=== PATIENT | female | born 1955 | race African-American/Black ===

== ENCOUNTER 2022-02-10 08:55 | Outpatient (REF) | payer OTHER, SELFPAY ==
--- NOTE | ~2022-02-10 | MM_ITS ---
EXAMINATION: MM SCREENING DIGITAL BREAST TOMOSYNTHESIS, BILATERAL CLINICAL INFORMATION: Screening. Asymptomatic. History bilateral biopsies. History left ADH. The lifetime risk of breast cancer based on the Tyrer-Cuzick Model is 22%. COMPARISON: Outside mammography: 07/03/2019, 03/04/2019, 09/23/2017, 03/20/2017 ([facility], [place], [place]). TECHNIQUE: Digital breast tomosynthesis is performed in both the craniocaudal and mediolateral oblique views along with computer-aided detection (CAD). Synthesized 2D images are generated from the tomosynthesis. FINDINGS: There are scattered areas of fibroglandular density (ACR BI-RADS breast composition Category b). Parenchymal pattern is similar to outside studies. There is no developing density or interval significant mass or architectural abnormality or abnormal calcifications. Left breast has a new biopsy clip marker posterior central breast. Prior clip marker anterior 1:00 left breast is no longer demonstrated. Right breast has stable nodular asymmetry posterior central breast. The axilla are unremarkable. The skin contours are smooth. No significant changes. MM/MM tomosynthesis screening BI IMPRESSION: No significant changes from outside studies. ASSESSMENT: BI-RADS 2: Benign RECOMMENDATION: 1. Routine annual mammography screening. 2. The lifetime risk of breast cancer based on the Tyrer-Cuzick Model is 22%. Additional annual adjunct screening with breast MRI may be of benefit in women with a risk score of 20% or greater. This patient's information was entered into a reminder system with a target due date for their next mammogram.
== END 2022-02-10 08:56 | disposition home or self-care (01) ==
LOC: HO.MAMMO 08:55
PROVIDERS: Visit Provider Internal Medicine
DX: Z12.31 Encounter for screening mammogram for malignant neoplasm of breast (principal)
CPT/HCPCS: 77063; 77067

== ENCOUNTER 2022-03-03 10:00 | Outpatient (REF) | payer OTHER, SELFPAY ==
[2022-03-03 10:20] LABS: MANUAL DIFF FLAG NO
[2022-03-03 10:37] LABS: Basophils Absolute Auto 0.1 X10*3/uL (0.0-0.2); Basophils Percent Auto 0.5 % (0-2); Eosinophils Absolute Auto 0.2 X10*3/uL (0.0-0.4); Eosinophils Percent Auto 1.5 % (0-4); Hematocrit 46.2 % (37.0-47.0); Hemoglobin 14.7 g/dl (12.0-16.0); Imm Gran Abs Auto 0.03 X10*3/uL (0.00-0.03); Imm Gran Pct Auto 0.3 % (0.0-0.4); Lymphocytes Absolute Auto 4.4 X10*3/uL (1.2-4.9); Lymphocytes Percent Auto 39.2 % (20-40); Mean Corpuscular HGB Conc 31.8 g/dl (31.0-35.0); Mean Corpuscular Hemoglobin 28.5 pg (27.0-33.0); Mean Corpuscular Volume 89.5 fL (80.0-98.0); Mean Platelet Volume 10.8 fL (9.4-12.3); Monocytes Absolute Auto 0.7 X10*3/uL (0.1-1.2); Monocytes Percent Auto 5.8 % (2-11); Neutrophils Absolute Auto 5.9 x10*3/uL (2.0-8.3); Neutrophils Percent Auto 52.7 % (45-73); Platelet Count 284 X10*3/uL (160-400); Red Blood Count 5.16 X10*6/uL (4.20-5.50); Red Cell Distribution Width 13.7 % (11.0-16.0); White Blood Count 11.2 X10*3/uL (4.8-10.8)
[2022-03-03 11:16] LABS: Alanine Aminotransferase 11 U/L (0-31); Albumin Level 4.2 g/dL (3.5-5.0); Alkaline Phosphatase 117 U/L (39-117); Aspartate Amino Transferase 14 U/L (5-31); Blood Urea Nitrogen 16 mg/dL (9-16); Estimated Glomerular Filt Rate > 60; Total Protein 7.2 g/dL (6.5-8.0)
[2022-03-03 11:27] LABS: Bilirubin Direct < 0.2 mg/dL (0.0-0.5); Bilirubin Total 0.3 mg/dL (0.0-1.0)
== END 2022-03-03 10:01 | disposition home or self-care (01) ==
LOC: HO.LAB 10:00
PROVIDERS: PCP Internal Medicine; Visit Provider Nurse Practitioner
DX: Z01.818 Encounter for other preprocedural examination (principal); K63.5 Polyp of colon
CPT/HCPCS: 36415; 80076; 82565; 84520; 85025; 99202

== ENCOUNTER 2022-04-14 10:41 | Outpatient (REF) | payer OTHER, SELFPAY ==
[2022-04-14 14:10] LABS: MANUAL DIFF FLAG NO
[2022-04-14 14:20] LABS: Basophils Absolute Auto 0.1 X10*3/uL (0.0-0.2); Basophils Percent Auto 0.5 % (0-2); Eosinophils Absolute Auto 0.2 X10*3/uL (0.0-0.4); Eosinophils Percent Auto 2.5 % (0-4); Hematocrit 44.2 % (37.0-47.0); Hemoglobin 14.4 g/dl (12.0-16.0); Imm Gran Abs Auto 0.02 X10*3/uL (0.00-0.03); Imm Gran Pct Auto 0.2 % (0.0-0.4); Lymphocytes Absolute Auto 4.5 X10*3/uL (1.2-4.9); Lymphocytes Percent Auto 47.9 % (20-40); Mean Corpuscular HGB Conc 32.6 g/dl (31.0-35.0); Mean Corpuscular Hemoglobin 28.7 pg (27.0-33.0); Mean Corpuscular Volume 88.2 fL (80.0-98.0); Mean Platelet Volume 11.6 fL (9.4-12.3); Monocytes Absolute Auto 0.6 X10*3/uL (0.1-1.2); Monocytes Percent Auto 6.2 % (2-11); Neutrophils Percent Auto 42.7 % (45-73); Platelet Count 287 X10*3/uL (160-400); Red Blood Count 5.01 X10*6/uL (4.20-5.50); Red Cell Distribution Width 13.8 % (11.0-16.0); White Blood Count 9.4 X10*3/uL (4.8-10.8)
[2022-04-14 14:26] LABS: Appearance Urine Clear; Color Urine Yellow; Glucose Urine UA Negative (Negative); Leukocyte Esterase Urine Small (1+) (Negative); Nitrite Urine Negative (Negative); PH 5.5 (5.0-9.0); UMIC TRIGGER UA YES; Urine Blood Negative (Negative); Urine Ketones Negative (Negative); Urine Protein Negative (Neg-Trace)
[2022-04-14 14:39] LABS: Bacteria Urine None Seen (None Seen); Hyaline Casts Urine 0-2 /LPF (0-2); RBC Urine 0-2 /HPF (0-2); WBC Urine 0-5 /HPF (0-5)
[2022-04-14 16:51] LABS: Alanine Aminotransferase 13 U/L (0-31); Alkaline Phosphatase 108 U/L (39-117); Anion Gap 8 (12-20); Aspartate Amino Transferase 15 U/L (5-31); Bilirubin Total 0.2 mg/dL (0.0-1.0); Blood Urea Nitrogen 13 mg/dL (9-16); Calcium 9.1 mg/dL (8.4-10.2); Carbon Dioxide 29 mmol/L (22-29); Chloride 109 mmol/L (96-108); Cholesterol 235 mg/dL; Estimated Glomerular Filt Rate > 60; Glucose Fasting 101 mg/dL (60-99); HDL Cholesterol 37 mg/dL; LDL Cholesterol Calculated 167 mg/dl; Sodium 141 mmol/L (135-145); TSH reflex Free T4 1.37 uIU/mL (0.32-4.0); Total Protein 6.7 g/dL (6.5-8.0); Triglycerides 157 mg/dL
== END 2022-04-14 10:42 | disposition home or self-care (01) ==
LOC: HO.HMGCLDS 10:41
PROVIDERS: PCP Internal Medicine; Visit Provider Internal Medicine
DX: Z00.00 Encounter for general adult medical examination without abnormal findings (principal); E78.5 Hyperlipidemia, unspecified; Z98.890 Other specified postprocedural states
CPT/HCPCS: 36415; 80053; 80061; 81001; 84443; 85025

== ENCOUNTER 2022-04-21 10:09 | Outpatient (REF) | payer OTHER, SELFPAY ==
--- NOTE | ~2022-04-21 | XR_ITS ---
EXAMINATION: XR LUMBOSACRAL SPINE CLINICAL INFORMATION: Low back pain. COMPARISON: None TECHNIQUE: Three views of the lumbosacral spine. FINDINGS: There are 5 nonrib-bearing lumbar vertebrae. There is a mild grade 1 spondylolisthesis L4-L5. No acute fractures identified. There is some bilateral facet arthropathy seen at the L4-L5 and L5-S1 levels. Pedicles appear intact. There is mild scoliosis convex right which may be positional in nature. XR/XR lumbar spine 2-3V IMPRESSION: No acute fracture or spondylolysis of the lumbar spine identified. Mild grade 1 spondylolisthesis L4-L5. Bilateral facet arthropathy L4 through S1.
== END 2022-04-21 10:10 | disposition home or self-care (01) ==
LOC: HO.HMGCX 10:09
PROVIDERS: PCP Internal Medicine; Visit Provider Internal Medicine
DX: M54.50 Low back pain, unspecified (principal)
CPT/HCPCS: 72100

== ENCOUNTER 2022-07-25 10:00 | Outpatient (RCR) | payer OTHER, SELFPAY ==
--- NOTE | 2022-06-16 15:42 | MHC.PT.EP ---
[facility] [place] Office [place] Office [place] Office [address] [phone] F: [phone] F: [phone] F: [phone] F: [phone] Physical Therapy Plan of Care Date of Evaluation: Date of Surgery: NA Diagnosis: LOW BACK PAIN Assessment: Pt IS 66 YO F REFERRED TO PT FROM [facility]. REPORTS PAIN X 4-5 MONTHS, INSIDIOUS ONSET. REPORTS WAS GETTING PAIN THAT WOULD COME AND GO BUT THEN STARTED GETTING WORSE. REPORTS PAIN ACROSS WAIST AND SHOOTS DOWN LEGS. REPORTS IT LIMITS HER FROM HER REGULAR DAILY ROUTINE, UNCOMFORTABLE SLEEPING (USES PILLOWS). RELIEF WITH ALLEVE PRESENTS TO PT WITH LIMITED TRUNK ROM, TIGHT LE MMS, WEAK CORE. SHOULD BENEFIT FROM PT TO ADDRESS THESE ISSUES Frequency and Duration: The patient will be seen 2X/WK X6 WKS Short Term Goals: 1. INCREASED AWARENESS BACK CARE AND POSTURE 2. Pt TO PERF 2-3 TASKS WITH PROPER BODY MECH 3. CENTRALIZE [facility] Goals: 1. I HEP WITH DC EX PLAN 2. DECREASED BACK PAIN AT LEAST 50% WITH ADLS 3. INCREASED HS FLEXIBILITY 5-10 DEGREES B 4. IMPROVED MODIFIED OSWESTRY (/50 SOC) Treatment Plan: Modalities to reduce pain, spasms and effusion. Manual therapy to restore motion and function. Therapeutic exercise to improve strength and flexibility. Neuromuscular re-education for posture and balance. Therapeutic activities to return to functional activities of daily living. Electronically signed by: OSVALDO HOLGUIN PT Please sign and return to therapist. Thank you for your referral.
--- NOTE | 2022-08-14 14:09 | MHC.PT.DC ---
[facility] [place] Office [place] Office [place] Office [address] [phone] F: [phone] F: [phone] F: [phone] F: [phone] Physical Therapy Discharge Report Diagnosis: LOW BACK PAIN Date of Surgery: NA Date of Evaluation: 06/16/22 Date of Discharge: 08/14/22 Treatments to Date: 6 Cancellations to Date: 0 No Shows to Date: 0 Discharge Status: Patient Elected to Stop Discharge Summary: PER LAST NOTE ON 07/25/22 GOOD PERF STRETCHES AND STRENGTHENING EXS WITH CUES . Pt THEN CANCELLED LAST VISIT SCHEDULED FOR 07/25/22 REPORTING SHE DIDNT WANT TO RESCHEDULE AT THAT TIME. NO FURTHER APPTS SCHEDULED Electronically signed by: OSVALDO HOLGUIN PT Please sign and return to therapist. Thank you for your referral.
== END 2022-08-14 14:09 | disposition home or self-care (01) ==
LOC: HO.PT 10:00
PROVIDERS: PCP Internal Medicine; Visit Provider Internal Medicine
DX: M54.50 Low back pain, unspecified (principal)
CPT/HCPCS: 97110; 97140; 97161; 97535

== ENCOUNTER 2022-08-18 08:57 | Outpatient (REF) | payer OTHER, SELFPAY ==
[2022-08-18 11:17] LABS: MANUAL DIFF FLAG NO
[2022-08-18 11:59] LABS: Basophils Absolute Auto 0.1 X10*3/uL (0.0-0.2); Basophils Percent Auto 0.5 % (0-2); Eosinophils Absolute Auto 0.2 X10*3/uL (0.0-0.4); Hematocrit 43.3 % (37.0-47.0); Hemoglobin 14.1 g/dl (12.0-16.0); Imm Gran Abs Auto 0.02 X10*3/uL (0.00-0.03); Imm Gran Pct Auto 0.2 % (0.0-0.4); Lymphocytes Absolute Auto 3.8 X10*3/uL (1.2-4.9); Lymphocytes Percent Auto 40.2 % (20-40); Mean Corpuscular HGB Conc 32.6 g/dl (31.0-35.0); Mean Corpuscular Hemoglobin 29.1 pg (27.0-33.0); Mean Corpuscular Volume 89.3 fL (80.0-98.0); Mean Platelet Volume 11.7 fL (9.4-12.3); Monocytes Absolute Auto 0.6 X10*3/uL (0.1-1.2); Monocytes Percent Auto 5.9 % (2-11); Neutrophils Absolute Auto 4.8 x10*3/uL (2.0-8.3); Neutrophils Percent Auto 51.2 % (45-73); Platelet Count 259 X10*3/uL (160-400); Red Blood Count 4.85 X10*6/uL (4.20-5.50); Red Cell Distribution Width 13.8 % (11.0-16.0); White Blood Count 9.5 X10*3/uL (4.8-10.8)
[2022-08-18 12:18] LABS: Alanine Aminotransferase 10 U/L (0-31); Albumin Level 3.9 g/dL (3.5-5.0); Alkaline Phosphatase 110 U/L (39-117); Anion Gap 11 (12-20); Aspartate Amino Transferase 13 U/L (5-31); Bilirubin Total 0.5 mg/dL (0.0-1.0); Blood Urea Nitrogen 17 mg/dL (9-16); Calcium 9.1 mg/dL (8.4-10.2); Carbon Dioxide 28 mmol/L (22-29); Chloride 111 mmol/L (96-108); Cholesterol 158 mg/dL; Estimated Glomerular Filt Rate > 60; Glucose Fasting 105 mg/dL (60-99); HDL Cholesterol 37 mg/dL; LDL Cholesterol Calculated 102 mg/dl; Potassium 4.8 mmol/L (3.3-5.1); Sodium 145 mmol/L (135-145); Total Protein 6.5 g/dL (6.5-8.0); Triglycerides 95 mg/dL
== END 2022-08-18 08:58 | disposition home or self-care (01) ==
LOC: HO.HMGCLDS 08:57
PROVIDERS: PCP Internal Medicine; Visit Provider Internal Medicine
DX: M54.50 Low back pain, unspecified (principal); E78.5 Hyperlipidemia, unspecified
CPT/HCPCS: 36415; 80053; 80061; 85025

== ENCOUNTER → 2022-08-28 10:41 | Outpatient (BNVA) | payer OTHER, SELFPAY | PROVIDERS: PCP Internal Medicine; Visit Provider Nurse Practitioner Family | DX: M47.817 Spondylosis without myelopathy or radiculopathy, lumbosacral region (principal); M54.16 Radiculopathy, lumbar region; M62.830 Muscle spasm of back | CPT/HCPCS: 99202 ==

== ENCOUNTER 2022-10-06 07:11 | Outpatient (REF) | payer OTHER, SELFPAY ==
--- NOTE | ~2022-10-06 | MR_ITS ---
MR LUMBAR SPINE WITHOUT CONTRAST CLINICAL INFORMATION: Spondylosis. COMPARISON: Lumbar spine radiographs 04/21/2022. TECHNIQUE: MRI of the lumbar spine was obtained using routine sequences without contrast. FINDINGS: There are 5 nonrib-bearing lumbar-type vertebral bodies. There is grade 1 degenerative anterolisthesis of L4 on L5. There is bone marrow edema within the left L4-L5 facets that is most likely degenerative or inflammatory. There is no additional bone marrow edema. There are no acute fractures. Small chronic upper endplate Schmorl's node at L2. Vertebral body heights overall maintained. There is mild disc volume loss at L4-L5. There is disc desiccation at all lumbar levels. Conus terminates at the L1-L2 level. There are no significant extraspinal soft tissue findings. L1-L2: Disc contour is normal. No central canal stenosis and no foraminal stenosis. L2-L3: Disc contour is normal. Moderate bilateral facet arthropathy and ligamentum flavum thickening. No central canal stenosis and no foraminal stenosis. L3-L4: Small annular disc bulge and moderate bilateral facet arthropathy and ligamentum flavum thickening. No central canal stenosis and no foraminal stenosis. L4-L5: Grade 1 degenerative anterolisthesis. Uncovered disc with a superimposed diffuse annular disc bulge and severe bilateral facet arthropathy and ligamentum flavum thickening. Basic concert result in mild central canal stenosis. No significant foraminal stenosis. L5-S1: Diffuse annular disc bulge and severe bilateral facet arthropathy. No central canal stenosis and no foraminal stenosis. MR/MR lumbar spine wo con IMPRESSION: - At L4-L5, there is grade 1 degenerative anterolisthesis in the setting of advanced bilateral facet arthropathy contributing to mild central canal stenosis. There is bone marrow edema within the left L4-L5 facets that is most likely degenerative or inflammatory. - Additional spondylitic changes as discussed above. No severe central canal stenosis and no severe foraminal stenosis within the lumbar spine.
== END 2022-10-06 07:12 | disposition home or self-care (01) ==
LOC: HO.MRI 07:11
PROVIDERS: PCP Internal Medicine; Visit Provider Nurse Practitioner Family
DX: M47.817 Spondylosis without myelopathy or radiculopathy, lumbosacral region (principal); M54.16 Radiculopathy, lumbar region
CPT/HCPCS: 72148

== ENCOUNTER 2022-10-19 10:10 | Day surgery (SDC) | payer OTHER, SELFPAY ==
--- NOTE | 2022-10-18 11:09 | HO.ANESPROP2 ---
Documented by User: Lilly Triplett NP 10/18/22 11:10 HPI - Anesthesia Eval Consult details Narrative: 66yo F for Colonoscopy PMFSH Active Problems Active Problems: All Active Problems (Updated 08/28/22 @ 11:15 by MEET Miller) Muscle spasm of back (Acute) Lumbar back pain with radiculopathy affecting right lower extremity (Acute) Lumbar and sacral spondyloarthritis (Acute) HTN (hypertension) (Acute) Lumbar back pain (Acute) Colon polyps (Acute) Pre-op examination (Acute) Obesity (Acute) Pre-diabetes (Acute) Heart murmur (Acute) Insomnia (Acute) H/O breast surgery (Acute) Hyperlipidemia (Acute) Annual physical exam (Acute) Breast dysplasia (Acute) Past Medical History Medical History (Updated 10/19/22 @ 10:55 by Angy Gonzalez RN) History of cyst of breast Hypertension Family History Family History Mother DM type 2 (diabetes mellitus, type 2) Son Thyroid ca Surgical History Surgical History (Updated 10/19/22 @ 10:54 by Angy Gonzalez RN) Hx of colonoscopy Social History Social History Household Members Other:: , 3 sons, retired Housing: House Alcohol intake: never Patient Tobacco Use Status: Current everyday Tobacco user Tobacco use type: Cigarette Cigarettes Per Day: 6 Smoked in Last 30 Days: Yes e-Cigarette/Vaping Use: Never Used Patient Interested in Nicotine Replacement: No Are you DNR?: No Advance Directives: No Advance Directives Information Provided: Yes Nutrition Risks: No Nutritional Risk service: No Current occupational status: retired Cognitive needs: No Hearing needs: Yes Vision needs: Yes Meds Allergies Allergy/AdvReac Type Severity Reaction Status Date / Time No Known Allergies Allergy Verified 10/19/22 10:35 Exam Exam Date and Time: October 18, 2022 1109 Pertinent Lab Results Pertinent Lab Results: Laboratory Tests 08/18/22 08/18/22 09:01 09:01 WBC 9.5 Hgb 14.1 Hct 43.3 Plt Count 259 Sodium 145 Potassium 4.8 Chloride 111 H Carbon Dioxide 28 BUN 17 H Creatinine 0.89 Assessment and Plan Assessment Anesthesia Assessment: Chart Reviewed Documented by User: Reema Arredondo MD 10/19/22 13:09 PMFSH Past Medical History Medical History (Updated 10/19/22 @ 10:55 by Angy Gonzalez RN) History of cyst of breast Hypertension Family History Family History Mother DM type 2 (diabetes mellitus, type 2) Son Thyroid ca Family history of problems with anesthesia: No Surgical History Surgical History (Updated 10/19/22 @ 10:54 by Angy Gonzalez RN) Hx of colonoscopy History of Problems with Anesthesia: No Social History Social History Household Members Other:: , 3 sons, retired Housing: House Alcohol intake: never Patient Tobacco Use Status: Current everyday Tobacco user Tobacco use type: Cigarette Cigarettes Per Day: 6 Smoked in Last 30 Days: Yes e-Cigarette/Vaping Use: Never Used Patient Interested in Nicotine Replacement: No Are you DNR?: No Advance Directives: No Advance Directives Information Provided: Yes Nutrition Risks: No Nutritional Risk service: No Current occupational status: retired Cognitive needs: No Hearing needs: Yes Vision needs: Yes Meds Allergies Allergy/AdvReac Type Severity Reaction Status Date / Time No Known Allergies Allergy Verified 10/19/22 10:35 Exam Airway Mallampati Class: II TM Dist: >3cm Neck ROM: Full Denture: Lower Partial: Lower Loose/Missing/Broken Teeth: No Heart: rr Lungs: cta Assessment and Plan Assessment Anesthesia Assessment: Anesthesia Plan Discussed, Smoking Cess. Discussed and Chart Reviewed Final Anesthetic Review Family History of Problems with Anesthesia: No History of Problems with Anesthesia: No NPO: Yes ASA Class: II Final Preanesthetic Review: No Changes in Pt Med Stat, Meds/Allgs Chart Reviewed, Consent Obtained/Reviewed and Anes Risks/Benef Reviewed Patient Risk: Low Procedure Risk: Low Anesthetic Plan Anesthetic Plan: MAC: Disposition: Standard PACU
[2022-10-19 10:28] VITALS: BMI 31.6
[2022-10-19] MEDS: Lactated Ringers 1,000 ML 100 ML IVCONT (10:42)
[2022-10-19 10:52] VITALS: BP 144/93; PULSE 81; RESP 18; TEMP 36.6; O2SAT 98
--- NOTE | 2022-10-19 11:48 | MHC.SHP ---
Pre-Procedural Eval Section A Date of Service: 10/19/22 Section B Chief Complaint: Personal hx of polyps Details of Present Illness: PMH: Hypertension Family History Mother DM type 2 (diabetes mellitus, type 2) Son Thyroid ca Relevant Social History: Tobacco Use Present Medications: see Short Stay Collaborative assessment Allergies: Allergies Allergy/AdvReac Type Severity Reaction Status Date / Time No Known Allergies Allergy Verified 10/19/22 10:35 Review of Systems Review of Systems Comment: 10 point ROS negative Exam Exam Comment: Gen appear: No acute distress HEENT: no icterus Chest: No overt resp distress Abd: soft, nontender, nondistended Psych: Stable affect, answering questions appropriately Neuro: A/Ox3 noted to move all extremities spontaneously Ext: no peripheral edema Plan Diagnosis/Plan: Unchanged I have reviewed the history and physical and performed a pertinent physical examination on my patient. No changes have occurred unless specified. Time Spent With Patient Time: Total time managing care of this patient today ____ minutes.
--- NOTE | 2022-10-19 12:45 | P.OP_ITS ---
Operative Note Operative Note Date of Service: 10/19/22 Narrative: Procedure: Colonoscopy Indication: Personal history of polyps Endoscopist: Marylin Martinez MD Anesthesia Provider: Dr Ketty Arredondo Anesthesia type: MAC Instrument: Olympus [id number]-[id number] Consent: Indication, risks vs benefits, and alternatives were discussed with the patient who gave written informed consent to proceed. EKG, pulse, pulse oximetry and blood pressure were monitored throughout the procedure. Please see anesthesia flowsheet. Procedure: The patient was brought to the procedure room and placed in the left lateral decubitus position. IV medications were administered by the anesthesia provider in attendance. A digital rectal exam was performed which was normal. Distal cap was affixed to the tip of the scope and the colonoscope was then inserted through the anus and advanced through the colon to the cecum at 75 cm,and terminal ileum. Mucosa was carefully examined under high definition white light as the instrument was slowly withdrawn in a retrograde panoramic fashion. Retroflexion was performed in rectum. The procedure was not difficult. There were no immediate obvious complications. The quality of the prep was BBPS: 3+3+3 = excellent Withdrawal time 16 minutes. Limitations: No limitation. Findings: Mucosa: Normal to cecum and terminal ileum. Protruding lesions: * 1 sessile polyp of size 3 mm in cecum. Cold snare polypectomy was performed. The polyp was completely removed and retrieved. * 1 sessile polyp of size 2 mm in transverse colon. Cold forceps polypectomy was performed. The polyp was completely removed and retrieved. * 1 sessile polyp of size 5 mm in transverse colon. Cold snare polypectomy was performed. The polyp was completely removed and retrieved. * 1 sessile polyp of size 5 mm in sigmoid colon. Cold snare polypectomy was performed. The polyp was completely removed and retrieved. * Medium internal hemorrhoids without stigmata of recent bleeding. Excavated lesions: * Divreticulosis of whole colon, with L > R. Impression: 1. Normal colon and terminal ileum mucosa 2. Total of 4 polyps removed from cecum, transverse and sigmoid colon. 3. Internal hemorrhoids 4. Diverticulosis Recommendations: - Follow path results. - Repeat colonoscopy in 3 years if at least 3 polyps are adenomas otherwise 7 years.
[2022-10-19 13:19] VITALS: BP 115/65; PULSE 80; RESP 16; TEMP 36.1; O2SAT 97
[2022-10-19 13:34] VITALS: BP 124/78; PULSE 74; RESP 16; TEMP 36.2; O2SAT 97
== END 2022-10-19 13:59 | disposition home or self-care (01) ==
PROVIDERS: PCP Internal Medicine; Visit Provider Internal Medicine
PROC: 0DJD8ZZ Inspection of Lower Intestinal Tract, Via Natural or Artificial Opening Endoscopic (ICD-10-PCS; CPT 45378; principal; 2022-10-19 12:00)
DX: Z12.11 Encounter for screening for malignant neoplasm of colon (principal); Z86.010 Personal history of colon polyps; D12.0 Benign neoplasm of cecum; D12.3 Benign neoplasm of transverse colon; D12.5 Benign neoplasm of sigmoid colon; K57.30 Diverticulosis of large intestine without perforation or abscess without bleeding; K64.8 Other hemorrhoids; I10 Essential (primary) hypertension; Z79.899 Other long term (current) drug therapy; F17.210 Nicotine dependence, cigarettes, uncomplicated
CPT/HCPCS: 45385; 45380; 88305

== ENCOUNTER → 2022-10-31 09:11 | Outpatient (BNVA) | payer OTHER, SELFPAY | PROVIDERS: PCP Internal Medicine; Visit Provider Nurse Practitioner | DX: D12.0 Benign neoplasm of cecum (principal); D12.3 Benign neoplasm of transverse colon; D12.5 Benign neoplasm of sigmoid colon; Z98.890 Other specified postprocedural states | CPT/HCPCS: 99212 ==

== ENCOUNTER → 2022-11-03 09:09 | Outpatient (BNVA) | payer OTHER, SELFPAY | PROVIDERS: PCP Internal Medicine; Visit Provider Nurse Practitioner Family | DX: M51.16 Intervertebral disc disorders with radiculopathy, lumbar region (principal); M43.16 Spondylolisthesis, lumbar region; M47.817 Spondylosis without myelopathy or radiculopathy, lumbosacral region; M48.061 Spinal stenosis, lumbar region without neurogenic claudication; M62.830 Muscle spasm of back | CPT/HCPCS: 99212 ==

== ENCOUNTER 2022-12-25 10:05 | Outpatient (AMB) | payer OTHER, SELFPAY ==
[2022-12-25 10:06] VITALS: BP 128/80; PULSE 77; O2SAT 98; BMI 30.6
--- NOTE | 2022-12-25 10:06 | A.OFFPC_ITS ---
Vital Signs 12/25/22 10:06 Height 5 ft 5 in Weight 184 lb BMI 30.6 BP 128/80 Blood Pressure Location Lt brachial Position Sitting Pulse 77 Pulse Source Pulse Oximeter Pulse Oximetry (%) 98 Oxygen Delivery Method Room Air Intake Visit Reasons: discuss medical issues Intake Note: Pt is here today for a follow up visit. Pt states that she is still getting pain on the ride side of her lower back that goes down her leg. Allergies No Known Allergies Allergy (Verified 12/25/22 10:10) Medication List - Last Reconciled 12/25/22 by Kasey Cervantes MD enalapril maleate 10 mg PO DAILY pravastatin 40 mg PO BEDTIME tizanidine 4 mg PO BID PRN 30 days Tobacco use date assessed: 12/25/22 Dental Screening Dental Screen Date: 12/25/22 Did you have a dental visit in the last 12 months?: No Did you have a dental problem in the last 6 months where you did not have access to dental care?: Yes Was dental information given to patient?: Yes HPI discuss medical issues HPI Details Patient presents for the follow-up. Hypertension hyperlipidemia controlled current medications. Patient follows up with pain management for chronic lower back pain and had an MRI which showed typical degenerated changes. Patient completed physical therapy and has been trying to do exercises at home. She was referred to neurosurgeon for evaluation. Patient denies weakness or numbness in extremities, change in bowel or bladder function. [facility] Medical History History of cyst of breast Hypertension Surgical History Hx of colonoscopy Family History Mother DM type 2 (diabetes mellitus, type 2) Son Thyroid ca Social History Household Members Other:: , 3 sons, retired Housing: House Alcohol intake: never Patient Tobacco Use Status: Current everyday Tobacco user Tobacco use type: Cigarette Cigarettes Per Day: 6 e-Cigarette/Vaping Use: Never Used service: No Current occupational status: retired Cognitive needs: No Hearing needs: Yes Vision needs: Yes Questionnaire Thrive Questionnaire Date Thrive assessed: 07/21/22 AUDIT C Alcohol Use Questionnaire (AUDIT-C) 1. How often do you have a drink containing alcohol?: Never 3. How often do you have six or more drinks on one occasion?: Never Total Score: 0 JACOBO-7 AMB Questionnaire JACOBO-7 Date JACOBO - 7 assessed: 07/21/22 Source: Developed by Drs. Mauro Henriquez, Manuela Alonso, Zi Jones and colleagues, with an educational niki from [employer]. Review of Systems Const All systems reviewed & are unremarkable except as noted in HPI and below Reports no additional complaints Eyes Reports no additional complaints ENT Reports no additional complaints Card Reports no additional complaints Resp Reports no additional complaints GI Reports no additional complaints Physical exam (Primary Care) Vital Signs: Last Vital Signs Pulse 77 12/25/22 10:06 BP 128/80 12/25/22 10:06 Pulse Ox 98 12/25/22 10:06 Oxygen Delivery Method Room Air 12/25/22 10:06 BMI result Body Mass Index 30.6 Tobacco/Smoking Status: Tobacco use Status Tobacco use date assessed 12/25/22 12/25/22 10:12 Patient Tobacco Use Status Current everyday Tobacco 12/25/22 10:12 Tobacco use type Cigarette 12/25/22 10:12 e-Cigarette/Vaping Use Never Used 12/25/22 10:12 Thrive Assessment: Date of Thrive Assessment Date Thrive assessed 07/21/22 12/25/22 10:12 Const General: no acute distress HENMT Head: Yes normal to inspection Mouth: Normal oral and palatal mucosa present Eyes General: appearance normal, both eyes and all related structures Neck Neck: Yes supple Resp Effort & Inspection: normal respiratory effort Auscultation: clear to auscultation bilaterally Cardio Rhythm: regular rhythm Heart sounds: S1 normal heart sound present and S2 normal heart sound present GI Palpation (GI): Soft to palpation Percussion: Yes normal to percussion Auscultation: normal bowel sounds Back/Spine/Pelvis Other: Decreased range of motion lumbar spine, paraspinal tenderness in the lower lumbar region, straight leg rising 90 degrees bilaterally, Assessment and Plan Assessment & Plan (1) Discogenic low back pain: Code(s): M51.36 - Other intervertebral disc degeneration, lumbar region Plan: Patient was advised to continue regular home lower back exercises, increase physical activity and lose weight (2) Hyperlipidemia: Code(s): E78.5 - Hyperlipidemia, unspecified Plan: Continue statin (3) HTN (hypertension): Code(s): I10 - Essential (primary) hypertension Plan: Continue enalapril. she will return in 6 months for a physical with fasting labs before Coding Level of Care Code Est Pt Level 4 (27490) Diagnoses Discogenic low back pain M51.36 Hyperlipidemia E78.5 HTN (hypertension) I10
== END 2022-12-25 10:52 | disposition home or self-care (01) ==
PROVIDERS: PCP Internal Medicine; Visit Provider Internal Medicine
DX: M51.36 Other intervertebral disc degeneration, lumbar region (principal); E78.5 Hyperlipidemia, unspecified; I10 Essential (primary) hypertension
CPT/HCPCS: 99214

== ENCOUNTER 2023-01-19 10:16 | Outpatient (AMB) | payer OTHER, SELFPAY ==
--- NOTE | 2023-01-19 10:21 | A.SPINEOV_ITS ---
Intake Intake Visit Reasons: discogenic low back pain Intake Note: Ms. Akers is here today c/o low back pain. [place] [facility] [place] [employer] Required: No Allergies No Known Allergies Allergy (Verified 12/25/22 10:10) Assessment & Plan Assessment & Plan (1) Lumbar and sacral spondyloarthritis: Code(s): M47.817 - Spondylosis without myelopathy or radiculopathy, lumbosacral region Plan Dear colleague Thank you for referring Alanna Akers to the office today with a chief complaint of low back pain and right leg pain. HPI: This 67-year-old female reports back pain that radiates down her right leg to her ankle with walking. Standing improves the pain. Gone up hills or stairs also produces the pain. The lower back pain is therefore an hour but can also be there for days. Laying down increases the back pain. She denies weakness or numbness. She was evaluated by our pain management team who referred to me for further evaluation before day will employ their treatment modalities. Physical Exam: Pleasant female.Gifford sign is positive. Straight leg raise is negative. Otherwise no neurologic deficits. Radiological Studies: [place] [facility] [place] excellent quality of lumbar discs without nerve compression or stenosis. There is a mild anterolisthesis L4-5 and L4-5 facet arthropathy with the right side is more affected than the left side.. Standing x-ray show no increase of the spondylolisthesis. Impression/Plan: This patient is suffering from back pain that could be related to the facet arthropathy. I recommended facet blocks and possible facet denervations. However, the leg pain is more consistent with vascular claudication. She is a smoker and therefore I referred her for a vascular study to rule out arterial stenosis. Thank you for allowing me to participate in your patients care. total time spent was 50 minutes in counseling ,coordination of plan, personal review of imaging, surgical decision making and subsequent plan William Meneses MD, PhD Spine Fellowship Trained Neurosurgeon Director, [facility] Orders: Orders US arterial duplex LE RT Today I73.9 - Peripheral vascular disease, unspecified Coding Level of Care Code New Pt Level 4 (11800) Diagnoses 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
== END 2023-01-19 10:53 | disposition home or self-care (01) ==
PROVIDERS: PCP Internal Medicine; Referring Provider Nurse Practitioner Family; Visit Provider Neurological Surgery
DX: M47.817 Spondylosis without myelopathy or radiculopathy, lumbosacral region (principal)
CPT/HCPCS: 99204; 99214

== ENCOUNTER → 2023-01-19 10:16 | Outpatient (BNVA) | payer OTHER, SELFPAY | PROVIDERS: PCP Internal Medicine; Visit Provider Neurological Surgery ==

== ENCOUNTER 2023-01-22 08:43 | Outpatient (AMB) | payer OTHER, SELFPAY ==
[2023-01-22 08:56] VITALS: BP 126/74; PULSE 86; O2SAT 96; BMI 30.3
--- NOTE | 2023-01-22 08:56 | A.OFFPC_ITS ---
Vital Signs 01/22/23 08:56 Height 5 ft 5 in Weight 182 lb BMI 30.3 BP 126/74 Blood Pressure Location Rt brachial Position Sitting Pulse 86 Pulse Source Pulse Oximeter Pulse Oximetry (%) 96 Oxygen Delivery Method Room Air Intake Visit Reasons: Annual PE Intake Note: Pt is here today for PE. Allergies No Known Allergies Allergy (Verified 01/22/23 08:56) Medication List - Last Reconciled 01/22/23 by Kasey Cervantes MD enalapril maleate 10 mg PO DAILY pravastatin 40 mg PO BEDTIME tizanidine 4 mg PO BID PRN 30 days Tobacco use date assessed: 01/22/23 HPI Annual PE HPI Details Pt presents for PE. SHE COMPLAINS OF SORE THROAT CONGESTION PRODUCTIVE COUGH WHEEZING AND LOW-GRADE FEVER for 4 days. Patient smokes a half a pack a day and is trying to quit. [facility] Medical History History of cyst of breast Hypertension Surgical History Hx of colonoscopy Family History Mother DM type 2 (diabetes mellitus, type 2) Son Thyroid ca Social History Household Members Other:: , 3 sons, retired Housing: House Alcohol intake: never Patient Tobacco Use Status: Current everyday Tobacco user Tobacco use type: Cigarette Cigarettes Per Day: 6 e-Cigarette/Vaping Use: Never Used service: No Current occupational status: retired Cognitive needs: No Hearing needs: Yes Vision needs: Yes Questionnaire Thrive Questionnaire Date Thrive assessed: 07/21/22 JACOBO-7 AMB Questionnaire JACOBO-7 Date JACOBO - 7 assessed: 07/21/22 Source: Developed by Drs. Mauro Henriquez, Manuela Alonso, Zi Jones and colleagues, with an educational niki from [employer]. Review of Systems Const All systems reviewed & are unremarkable except as noted in HPI and below Reports no additional complaints Eyes Reports no additional complaints ENT Reports no additional complaints Card Reports no additional complaints GI Reports no additional complaints Reports no additional complaints Physical exam (Primary Care) Vital Signs: Last Vital Signs Pulse 86 01/22/23 08:56 BP 126/74 01/22/23 08:56 Pulse Ox 96 01/22/23 08:56 Oxygen Delivery Method Room Air 01/22/23 08:56 BMI result Body Mass Index 30.3 Tobacco/Smoking Status: Tobacco use Status Tobacco use date assessed 01/22/23 01/22/23 09:01 Patient Tobacco Use Status Current everyday Tobacco 01/22/23 08:57 Tobacco use type Cigarette 01/22/23 08:57 e-Cigarette/Vaping Use Never Used 01/22/23 08:57 Thrive Assessment: Date of Thrive Assessment Date Thrive assessed 07/21/22 01/22/23 08:57 Const General: no acute distress HENMT Head: Yes normal to inspection Ears: TM's normal bilaterally General nose exam: Abnormal mucous membranes and turbinates present erythematous Face and sinus: Yes sinus tenderness Throat: Yes posterior oropharynx abnormal (erythema) and Yes postnasal drainage Eyes General: appearance normal, both eyes and all related structures Neck Neck: Yes no lymphadenopathy and Yes supple Resp Effort & Inspection: normal respiratory effort Auscultation: wheezes and diminished lung sounds Cardio Rhythm: regular rhythm Heart sounds: S1 normal heart sound present and S2 normal heart sound present GI Inspection: Yes normal to inspection Palpation (GI): Soft to palpation Percussion: Yes normal to percussion Auscultation: normal bowel sounds Assessment and Plan Assessment & Plan (1) Bronchitis: Code(s): J40 - Bronchitis, not specified as acute or chronic Plan: Z-Remigio prednisone taper and albuterol inhaler are prescribed and supportive care discussed with the patient. Tobacco quitting was recommended (2) Annual physical exam: Code(s): Z00.00 - Encounter for general adult medical examination without abnormal findings Plan: Well-balanced diet and regular physical activity weight loss discussed with the patient, she is up-to-date with mammogram and colonoscopy (3) Hyperlipidemia: Code(s): E78.5 - Hyperlipidemia, unspecified Plan: Continue statin (4) Lumbar and sacral spondyloarthritis: Comment: Follow-up with pain management Code(s): M47.817 - Spondylosis without myelopathy or radiculopathy, lumbosacral region Orders: Orders SARS-CoV2/FLU/RSV Today R09.89 - Other specified symptoms and signs involving the circulatory and respiratory systems Comprehensive [place]. Panel Fast Today E78.5 - Hyperlipidemia, unspecified, M47.817 - Spondylosis without myelopathy or radiculopathy, lumbosacral region, Z00.00 - Encounter for general adult medical examination without abnormal findings Complete Blood Count Auto Diff Today E78.5 - Hyperlipidemia, unspecified, M47. 817 - Spondylosis without myelopathy or radiculopathy, lumbosacral region, Z00.00 - Encounter for general adult medical examination without abnormal findings Lipid Panel Today E78.5 - Hyperlipidemia, unspecified, M47.817 - Spondylosis without myelopathy or radiculopathy, lumbosacral region, Z00.00 - Encounter for general adult medical examination without abnormal findings TSH reflex Free T4 Today E78.5 - Hyperlipidemia, unspecified, M47.817 - Spondylosis without myelopathy or radiculopathy, lumbosacral region, Z00.00 - Encounter for general adult medical examination without abnormal findings Medications: New albuterol sulfate 90 mcg/actuation 2 puffs inhalation QID PRN 8.5 grams 0RF shortness of breath or wheezing azithromycin start on day 2 of therapy 250 mg PO DAILY 6 tabs 0RF 6 days prednisone 4 tablets p.o. q.d. for 3 days then 3 tablets p.o. q.d. for 3 days then 2 tablets p.o. q.d. for 3 days and 1 tablet p.o. q.d. for 3 days 10 mg PO DIRECTED 30 tabs 0RF Coding Level of Care Code Est Pt Prev Care >65y(11403) Diagnoses Bronchitis J40 Annual physical exam Z00.00 Hyperlipidemia E78.5 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
== END 2023-01-22 09:51 | disposition home or self-care (01) ==
PROVIDERS: Visit Provider Internal Medicine
DX: J40 Bronchitis, not specified as acute or chronic (principal); Z00.00 Encounter for general adult medical examination without abnormal findings; E78.5 Hyperlipidemia, unspecified; M47.817 Spondylosis without myelopathy or radiculopathy, lumbosacral region
CPT/HCPCS: 99397

== ENCOUNTER 2023-01-22 09:32 | Outpatient (REF) | payer OTHER, SELFPAY ==
[2023-01-22 11:57] LABS: Influenza A PCR NEGATIVE (Negative); Influenza B PCR NEGATIVE (Negative); Resp Syncy Virus RNA Qual PCR NEGATIVE (Negative); SARS COV2 PCR INHOUSE NEGATIVE (Negative)
== END 2023-01-22 09:33 | disposition home or self-care (01) ==
LOC: HO.LAB 09:32
PROVIDERS: Visit Provider Internal Medicine
DX: Z20.822 Contact with and (suspected) exposure to COVID-19 (principal); R09.89 Other specified symptoms and signs involving the circulatory and respiratory systems
CPT/HCPCS: 0241U

== ENCOUNTER → 2023-02-16 09:00 | Outpatient (BNV) | payer OTHER, SELFPAY | PROVIDERS: PCP Internal Medicine; Visit Provider Radiology Diagnostic Radiology | DX: Z12.31 Encounter for screening mammogram for malignant neoplasm of breast (principal) | CPT/HCPCS: 77063; 77067 ==

== ENCOUNTER 2023-02-16 09:04 | Outpatient (REF) | payer OTHER, SELFPAY ==
--- NOTE | ~2023-02-16 | MM_ITS ---
EXAMINATION: MM SCREENING DIGITAL BREAST TOMOSYNTHESIS, BILATERAL CLINICAL INFORMATION: Screening. Asymptomatic. COMPARISON: Mammography: This study is compared with prior exams dating back to 2018. TECHNIQUE: Digital breast tomosynthesis is performed in both the craniocaudal and mediolateral oblique views along with computer-aided detection (CAD). Synthesized 2D images are generated from the tomosynthesis. FINDINGS: There are scattered areas of fibroglandular density (ACR BI-RADS breast composition Category b). There are no significant masses, abnormal calcifications, or other abnormalities. There is a tissue marker in the left breast from prior benign percutaneous biopsy. MM/MM tomosynthesis screening BI IMPRESSION: No mammographic evidence of malignancy. ASSESSMENT: BI-RADS BI-RADS 2 - Benign Findings RECOMMENDATION: Routine annual mammography screening. 1 year F/U This examination should not preclude the clinical evaluation of a suspicious palpable abnormality. This patient's information was entered into a reminder system with a target due date for their next mammogram.
== END 2023-02-16 09:05 | disposition home or self-care (01) ==
LOC: HO.MAMMO 09:04
PROVIDERS: PCP Internal Medicine; Visit Provider Internal Medicine
DX: Z12.31 Encounter for screening mammogram for malignant neoplasm of breast (principal)
CPT/HCPCS: 77063; 77067

== ENCOUNTER 2023-03-26 13:52 | Outpatient (REF) | payer OTHER, SELFPAY ==
--- NOTE | ~2023-03-26 | US_ITS ---
EXAMINATION: Noninvasive assessment of the left lower extremities with ARTERIAL DUPLEX CLINICAL INFORMATION: Peripheral vascular disease with left lower extremity pain TECHNIQUE: Duplex Doppler techniques with waveform analysis and measurement of velocities in the left common femoral, profunda femoris, superficial femoral, popliteal and tibial arteries were performed. COMPARISON: None FINDINGS: DIRECT DUPLEX DOPPLER FINDINGS: LEFT LEG: Common femoral artery: 114 cm/s, phasicity: Triphasic Profunda femoris artery: 61.7 cm/s, phasicity: Triphasic Superficial femoral artery (proximal): 100 cm/s, phasicity: Triphasic Superficial femoral artery (mid): 66.0 cm/s, phasicity: Triphasic Superficial femoral artery (distal): 79.2 cm/s, phasicity: Triphasic Popliteal artery: 67.2 cm/s, phasicity: Triphasic Posterior tibial artery: 105 cm/s, phasicity: Triphasic Peroneal artery: 45.2 cm/s, phasicity: Biphasic Anterior tibial artery: 49.9 cm/s, phasicity: Biphasic Dorsalis pedis artery: 65.1 cm/s, phasicity: Biphasic US/US arterial duplex LE LT IMPRESSION: Normal duplex arterial ultrasound of the left lower extremity
== END 2023-03-26 13:53 | disposition home or self-care (01) ==
LOC: HO.US 13:52
PROVIDERS: PCP Internal Medicine; Visit Provider Neurological Surgery
DX: I73.9 Peripheral vascular disease, unspecified (principal)
CPT/HCPCS: 93926

== ENCOUNTER 2023-06-27 16:08 | Emergency (ER) | payer OTHER, SELFPAY ==
[2023-06-27 16:24] VITALS: BP 154/81; PULSE 80; RESP 16; TEMP 36.6; O2SAT 98; BMI 31.3
--- NOTE | 2023-06-27 16:24 | ED_ITS ---
HPI - Eye Problem General Chief complaint: Eye Problems Stated complaint: eye problems since yesterday Time Seen by Provider: 06/27/23 17:24 Source: patient Mode of arrival: ambulatory Limitations: no limitations History of Present Illness HPI Narrative: Patient is a 67-year-old female presenting to the emergency department with complaint of bilateral eye itching, redness, and purulent discharge since yesterday. States symptoms began yesterday in left eye and have progressed to right. Reports some blurred vision due to discharge, but states vision clears when discharge is wiped away. Also reports bilateral foreign body sensation. Patient reports that she wears glasses daily but denies any contact lens use. Denies any nasal congestion, sinus pain or pressure, fevers. chief complaint: eye redness Onset (ago): day(s) Onset description: gradual Duration: progressively worsening Location: both eyes Eye Symptoms: redness, foreign body sensation, itching and discharge Associated symptoms: none Treatments Prior to Arrival: none Related Data Previous Rx's Medication Instructions Recorded tizanidine 4 mg tablet 4 mg PO BID PRN muscle spasticity 08/31/22 30 days #60 tabs albuterol sulfate 90 mcg/actuation 2 puff inhalation QID PRN 01/22/23 aerosol inhaler shortness of breath or wheezing #8.5 grams azithromycin 250 mg tablet 250 mg PO DAILY 6 days #6 tabs 01/22/23 prednisone 10 mg tablet 10 mg PO DIRECTED #30 tabs 01/22/23 enalapril maleate 10 mg tablet 10 mg PO DAILY #90 tabs 04/21/23 pravastatin 40 mg tablet 40 mg PO BEDTIME #90 tabs 04/21/23 polymyxin B sulfate 10,000 1 drp ophthalmic (eye) Q3H 7 days 06/27/23 unit-trimethoprim 1 mg/mL eye drops #10 mL Allergies Allergy/AdvReac Type Severity Reaction Status Date / Time No Known Allergies Allergy Verified 06/27/23 16:24 Review of Systems Review of Systems: As per HPI Yes all other systems are reviewed and are negative Constitutional: Constitutional: Reports as per HPI PMFSH Past Medical History Medical History History of cyst of breast Hypertension Surgical History Hx of colonoscopy Family History Family History Mother DM type 2 (diabetes mellitus, type 2) Son Thyroid ca Social History Social History Household Members Other:: , 3 sons, retired Housing: House Alcohol intake: never Patient Tobacco Use Status: Current everyday Tobacco user Tobacco use type: Cigarette Cigarettes Per Day: 6 e-Cigarette/Vaping Use: Never Used Advance Directives: No Advance Directives Information Provided: No service: No Current occupational status: retired Cognitive needs: No Hearing needs: Yes Vision needs: Yes Physical Exam Vital Signs: Vital Signs: Last Vital Signs Temp 97.9 F 06/27/23 16:24 Pulse 80 06/27/23 16:24 Resp 16 06/27/23 16:24 BP 154/81 H 06/27/23 16:24 Pulse Ox 98 06/27/23 16:24 O2 Del Method Room Air 06/27/23 16:24 BMI result Body Mass Index 31.3 Vital signs have been reviewed and appear to be correct. Blood pressure elevated. Heart rate normal. Respiratory rate normal. Temperature normal. Oxygen saturation normal. Const: General: cooperative, healthy appearing and no acute distress Orientation/consciousness: oriented to person, oriented to place, oriented to time and patient oriented x3 Limitations: no limitations HEENT: Head: Yes normocephalic and Yes atraumatic Ears: external ears normal General nose exam: Normal external nose present Face and sinus: Yes face symmetric Mouth: oropharynx normal and moist mucous membranes Throat: Yes uvula midline Eyes: Other: purulent drainage noted bilaterally General: appearance normal, both eyes and all related structures Visual Monsivais: normal visual monsivais by confrontation Alignment and Position: alignment normal and position normal Periorbital: periorbital findings normal Eyelids: Yes eyelids normal Conjunctivae: conjunctival abnormal bilateral conjunctival injection diffuse Sclerae: sclerae normal Corneas: corneas normal and fluorescein used (no evidence of abrasion on Boo lamp exam) Pupils: Equal, round and reactive pupils present EOM: EOMs intact bilaterally Neck: Neck: Yes normal visual inspection and Yes supple Resp: Effort & Inspection: normal respiratory effort and able to speak in complete sentences Auscultation: clear to auscultation bilaterally Cardio: Rate: regular rate Rhythm: regular rhythm Heart sounds: S1 normal heart sound present and S2 normal heart sound present GI: Palpation (GI): Soft to palpation and nontender Auscultation: normoacti ve bowel sounds : General: Yes no CVA tenderness Back/Spine/Pelvis: Back: no CVA tenderness Skin: General skin exam: elasticity normal and turgor normal Neuro: General: oriented to person, oriented to place, oriented to time, patient oriented x3, moves all extremities, no focal motor deficits and CN's II- XI intact bilaterally Cranial nerves: Yes Equal, round and reactive pupils present Cognition (Neuro): normal cognition Extrem: General: Yes full ROM, Yes no pedal edema and Yes no calf tenderness Psych: Mental Status: mental status grossly normal Affect: normal affect Thought process: Normal thought process present Course Course Course Narrative: RME: 67 year-old F w/ PMHx HTN presenting to the ED c/o bilateral eye leaking, swelling and FB sensation described as sandpaper feeling w/assoc blurry vision and itching x yesterday. started in L eye and spread to R. +b/l conjunctival injection/tearing. wears glasses, no contacts VA, Tetricaine/fluorescein ordered Full HPI, ROS and PE to be performed by primary ED provider. Medical Decision Making Medical Decision Making [facility] Narrative: Patient is a 67-year-old female presenting to the emergency department with co mplaint of bilateral eye itching, redness, and purulent discharge since yesterday. On exam patient is awake, A+Ox3, VS WNL, afebrile, normal neurological exam without focal deficits, physical exam findings as above. Given reported symptoms and physical exam findings, initial differential includes conjunctivitis, corneal abrasion. Do not suspect preseptal cellulitis. No evidence of corneal abrasions on Boo lamp exam with fluorescein. Will treat patient with polymyxin B/ trimethoprim drops. Educated patient on importance of hand hygiene. Return precautions discussed with patient at beds michelle. Patient verbalized understanding of and agreement with plan. Differential Diagnosis Differential Diagnoses: The differential diagnosis associated with the presentation includes As per MDM. External Record Review External record reviewed: Inpatient record, Office record and Outpatient record Prescription Management I considered prescription management with: Antibiotic Discharge Plan Discharge Clinical Impression: Acute conjunctivitis, bilateral Patient Disposition: Home, Self-Care Instructions: Conjunctivitis (ED) Additional Instructions: You were evaluated in the emergency department today for eye redness, itching, and discharge. You are being treated for conjunctivitis with antibiotic eyedrops. Please complete the full course as prescribed. Be sure to wash hands thoroughly before and after touching your eyes. You should follow up with your primary care provider or external relations director this week. Return to the emergency department if you develop changes in vision, increasing pain, fever 100.4F or greater, increased swelling around your eyes, pain with eye movements or any other concerning symptoms. Prescriptions: New polymyxin B sulf-trimethoprim 10,000 unit- 1 mg/mL drops 1 drp ophthalmic (eye) Q3H 7 Days Qty: 10 0RF Rx Instructions: to both eyes while awake; do not exceed 6 doses in 24 hours No Action tizanidine 4 mg tablet 4 mg PO BID PRN (Reason: muscle spasticity) 30 Days Qty: 60 0RF pravastatin 40 mg tablet 40 mg PO BEDTIME Qty: 90 3RF enalapril maleate 10 mg tablet 10 mg PO DAILY Qty: 90 3RF azithromycin 250 mg tablet 250 mg PO DAILY 6 Days Qty: 6 0RF Rx Instructions: start on day 2 of therapy prednisone 10 mg tablet 10 mg PO DIRECTED Qty: 30 0RF Rx Instructions: 4 tablets p.o. q.d. for 3 days then 3 tablets p.o. q.d. for 3 days then 2 tablets p.o. q.d. for 3 days and 1 tablet p.o. q.d. for 3 days albuterol sulfate 90 mcg/actuation HFA aerosol inhaler 2 puff inhalation QID PRN (Reason: shortness of breath or wheezing) Qty: 8.5 0RF
[2023-06-27] MEDS: Tetracaine HCl/PF 0.5% Oph Sol 4 ML DROPS 1 DROP EYE-BOTH (17:40)
[2023-06-27] MEDS: Fluorescein Sodium STRIP 1 STRIP EYE-BOTH (17:40)
== END 2023-06-27 18:30 | disposition home or self-care (01) ==
PROVIDERS: Emergency Provider Emergency Medicine Emergency Medical Services; PCP Internal Medicine
DX: H10.33 Unspecified acute conjunctivitis, bilateral (principal); I10 Essential (primary) hypertension
CPT/HCPCS: 99282; 99283

== ENCOUNTER 2024-01-25 09:34 | Outpatient (AMB) | payer OTHER, SELFPAY ==
[2024-01-25 09:36] VITALS: BP 130/78; PULSE 71; O2SAT 97; BMI 31.4
--- NOTE | 2024-01-25 09:36 | A.OFFPC_ITS ---
Vital Signs 01/25/24 09:36 Height 5 ft 5 in Weight 189 lb BMI 31.4 BP 130/78 Blood Pressure Location Rt brachial Position Sitting Pulse 71 Pulse Source Pulse Oximeter Pulse Oximetry (%) 97 Oxygen Delivery Method Room Air Intake Visit Reasons: PE Intake Note: Pt is here today for PE. Allergies No Known Allergies Allergy (Verified 01/25/24 09:38) Medication List - Last Reconciled 01/25/24 by Kasey Cervantes MD albuterol sulfate 90 mcg/actuation 2 puffs inhalation QID PRN enalapril maleate 10 mg PO DAILY polymyxin B sulf-trimethoprim 10,000 unit- 1 mg/mL 1 drp ophthalmic (eye) Q3H 7 days pravastatin 40 mg PO BEDTIME Tobacco use date assessed: 01/25/24 Fall risk assessment: No Falls in past year Last assessed Fall Risk: 01/25/24 Dental Screening Dental Screen Date: 01/25/24 Did you have a dental visit in the last 12 months?: Yes Did you have a dental problem in the last 6 months where you did not have access to dental care?: No Was dental information given to patient?: Patient has dentist HPI PE HPI Details Patient presents for physical. She complains of chronic lower back pain and has been working with pain management and physical therapy. [facility] Medical History (Updated 01/25/24 @ 10:04 by Kasey Cervantes MD) History of cyst of breast Hypertension Surgical History Hx of colonoscopy Family History Mother DM type 2 (diabetes mellitus, type 2) Son Thyroid ca Social History Household Members Other:: , 3 sons, retired Housing: House Alcohol intake: never Patient Tobacco Use Status: Current everyday Tobacco user Tobacco use type: Cigarette Cigarettes Per Day: 6 e-Cigarette/Vaping Use: Never Used service: No Current occupational status: retired Cognitive needs: No Hearing needs: Yes Vision needs: Yes Questionnaire PHQ-9 Over the last 2 weeks, how often have you been bothered by any of the following problems? 1. Little interest or pleasure in doing things: nearly every day 2. Feeling down, depressed, or hopeless: nearly every day 3. Trouble falling or staying asleep, or sleeping too much: nearly every day 4. Feeling tired or having little energy: nearly every day 5. Poor appetite or overeating: nearly every day 6. Feeling bad about yourself - or that you are a failure or have let yourself or your family down: more than half the days 7. Trouble concentrating on things, such as reading the newspaper or watching television: nearly every day 8. Moving or speaking so slowly that other people could have noticed. Or the opposite - being so fidgety or restless that you have been moving around a lot more than usual: not at all 9. Thoughts that you would be better off or of hurting yourself in some way: not at all Total score: 20 Depression Screening Interpretation: Positive (Patient follows up with a therapist not interested in medications) Depression Screening Follow-up: Existing condition and In treatment Depression Screening Done: Yes 38446 - PHQ-9 Billing: Yes Source: Developed by Drs. Mauro Henriquez, Manuela Alonso, Zi Jones and colleagues, with an educational niki from [employer] Thrive Questionnaire Date Thrive assessed: 01/25/24 I am a: Patient What is your living situation today?: I have a steady place to live Within the past 12 months, did the food you bought not last and you didn't have the money to get more?: Sometimes True Within the past 12 months, did you worry whether your food would run out before you got money to buy more?: Sometimes True Do you have trouble paying for medicines?: No Do you have trouble getting transportation to medical appointments?: No Do you have trouble paying your heating and electricity bill?: No Do you have trouble taking care of your child, family member or friend?: I choose not to answer this question Do you have trouble with day-to-day activities such as bathing, preparing meals, shopping, managing finances, etc.?: Yes Are you interested in more education?: Yes Please select the resources that you would like help with: Daily support Currently or been in a relationship where the following occur: No concerns reported THRIVE Score: 2 AUDIT C Alcohol Use Questionnaire (AUDIT-C) 1. How often do you have a drink containing alcohol?: Never 3. How often do you have six or more drinks on one occasion?: Never Total Score: 0 JACOBO-7 AMB Questionnaire JACOBO-7 Date JACOBO - 7 assessed: 01/25/24 Feeling nervous, anxious, or on edge: 1 = Several days Not being able to stop or control worryin = Several days Worrying too much about different things: 1 = Several days Trouble relaxin = Nearly every day Being so restless that it is hard to sit still: 3 = Nearly every day Becoming easily annoyed or irritable: 3 = Nearly every day Feeling afraid as if something awful might happen: 1 = Several days Total JACOBO-7 score (0-4 normal; 5-9 mild; 10-14 moderate; 15-21 severe): 13 Source: Developed by Drs. Mauro Henriquez, Manuela Alonso, Zi Jones and colleagues, with an educational niki from [employer] JACOBO-7 Assessment Billing JACOBO-7 Assessment Tool: JACOBO-7 Assessment 00588 Review of Systems Const All systems reviewed & are unremarkable except as noted in HPI and below Reports no additional complaints Eyes Reports no additional complaints ENT Reports no additional complaints Card Reports no additional complaints Resp Reports no additional complaints GI Reports no additional complaints Reports no additional complaints Physical exam (Primary Care) Vital Signs: Last Vital Signs Pulse 71 01/25/24 09:36 BP 130/78 01/25/24 09:36 Pulse Ox 97 01/25/24 09:36 Oxygen Delivery Method Room Air 01/25/24 09:36 BMI result Body Mass Index 31.4 Tobacco/Smoking Status: Tobacco use Status Tobacco use date assessed 01/25/24 01/25/24 09:41 Patient Tobacco Use Status Current everyday Tobacco 01/25/24 09:36 Tobacco use type Cigarette 01/25/24 09:36 e-Cigarette/Vaping Use Never Used 01/25/24 09:36 PHQ-9: PHQ-9 Score PHQ-9: Total score 01/25/24 09:41 Depression Screening Interpretation: Positive (Patient follows up with a therapist not interested in medications) Depression Screening Follow-up: Existing condition and In treatment Thrive Assessment: Date of Thrive Assessment Date Thrive assessed 01/25/24 01/25/24 09:41 Currently or been in a relationship where the following occur: No concerns reported Const General: no acute distress HENMT Head: Yes normal to inspection Ears: hearing grossly normal bilaterally Face and sinus: Yes normal facial exam Mouth: Normal oral and palatal mucosa present Throat: Yes posterior oropharynx normal Eyes General: appearance normal, both eyes and all related structures Neck Neck: Yes no lymphadenopathy and Yes supple Resp Effort & Inspection: normal respiratory effort Auscultation: clear to auscultation bilaterally Cardio Rhythm: regular rhythm Heart sounds: S1 normal heart sound present and S2 normal heart sound present GI Inspection: Yes normal to inspection Palpation (GI): Soft to palpation Percussion: Yes normal to percussion Auscultation: normal bowel sounds Assessment and Plan Assessment & Plan (1) HTN (hypertension): Code(s): I10 - Essential (primary) hypertension Plan: Continue enalapril (2) Degenerative lumbar spinal stenosis: Code(s): M48.061 - Spinal stenosis, lumbar region without neurogenic claudication Plan: Continue regular exercises and follow-up with pain management as needed (3) Tubular adenoma of colon: Comment: X4 TA is 2022 repeat 3 years Code(s): D12.6 - Benign neoplasm of colon, unspecified Plan: Follow-up with GI (4) Annual physical exam: Code(s): Z00.00 - Encounter for general adult medical examination without abnormal findings Plan: Well-balanced diet regular physical activity weight loss discussed with the patient she will have a fasting blood work today. Patient will schedule a mammogram (5) Hyperlipidemia: Code(s): E78.5 - Hyperlipidemia, unspecified Plan: Continue statin (6) Anxiety and depression: Code(s): F41.9 - Anxiety disorder, unspecified; F32.A - Depression, unspecified Plan: Continue therapy and patient declined medications Orders: Orders Comprehensive [place]. Panel Fast Today I10 - Essential (primary) hypertension Complete Blood Count Auto Diff Today I10 - Essential (primary) hypertension TSH reflex Free T4 Today I10 - Essential (primary) hypertension UA w Microscopic Today I10 - Essential (primary) hypertension Comprehensive [place]. Panel Fast 1 Year E66.9 - Obesity, unspecified, E78.5 - Hyperlipidemia, unspecified, I10 - Essential (primary) hypertension Lipid Panel 1 Year E66.9 - Obesity, unspecified, E78.5 - Hyperlipidemia, unspecified, I10 - Essential (primary) hypertension Complete Blood Count Auto Diff 1 Year E66.9 - Obesity, unspecified, E78.5 - Hyperlipidemia, unspecified, I10 - Essential (primary) hypertension Lipid Panel Today I10 - Essential (primary) hypertension Vitamin D 25-OH Total Today I10 - Essential (primary) hypertension Coding Level of Care Code Est Pt Prev Care >65y(74876) Diagnoses HTN (hypertension) I10 Degenerative lumbar spinal stenosis M48.061 Tubular adenoma of colon D12.6 Annual physical exam Z00.00 Hyperlipidemia E78.5 Anxiety and depression F41.9; F32.A Additional Codes JACOBO-7 Assessment Billing - JACOBO-7 Assessment Tool: JACOBO-7 Assessment 38887 ([id number])
== END 2024-01-25 10:05 | disposition home or self-care (01) ==
PROVIDERS: PCP Internal Medicine; Visit Provider Internal Medicine
DX: I10 Essential (primary) hypertension (principal); M48.061 Spinal stenosis, lumbar region without neurogenic claudication; D12.6 Benign neoplasm of colon, unspecified; Z00.00 Encounter for general adult medical examination without abnormal findings; E78.5 Hyperlipidemia, unspecified; F41.9 Anxiety disorder, unspecified; F32.A Depression, unspecified

== ENCOUNTER → 2024-01-25 09:34 | Outpatient (BNVA) | payer OTHER, SELFPAY | PROVIDERS: PCP Internal Medicine; Visit Provider Internal Medicine ==

== ENCOUNTER 2024-01-25 10:04 | Outpatient (REF) | payer OTHER, SELFPAY ==
[2024-01-25 13:25] LABS: Appearance Urine Clear; Color Urine Yellow; Glucose Urine UA Negative (Negative); Leukocyte Esterase Urine Small (1+) (Negative); Nitrite Urine Negative (Negative); PH 5.5 (5.0-9.0); Specific Gravity - Urine 1.025 (1.005-1.025); UMIC TRIGGER UA YES; Urine Blood Negative (Negative); Urine Ketones Negative (Negative); Urine Protein Negative (Neg-Trace)
[2024-01-25 13:26] LABS: MANUAL DIFF FLAG NO
[2024-01-25 13:38] LABS: Basophils Absolute Auto 0.1 X10*3/uL (0.0-0.2); Basophils Percent Auto 0.6 % (0-2); Eosinophils Absolute Auto 0.3 X10*3/uL (0.0-0.4); Eosinophils Percent Auto 4.3 % (0-4); Hematocrit 43.5 % (37.0-47.0); Hemoglobin 14.1 g/dl (12.0-16.0); Imm Gran Abs Auto 0.02 X10*3/uL (0.00-0.03); Imm Gran Pct Auto 0.3 % (0.0-0.4); Lymphocytes Absolute Auto 3.5 X10*3/uL (1.2-4.9); Lymphocytes Percent Auto 44.8 % (20-40); Mean Corpuscular HGB Conc 32.4 g/dl (31.0-35.0); Mean Corpuscular Hemoglobin 29.3 pg (27.0-33.0); Mean Corpuscular Volume 90.4 fL (80.0-98.0); Mean Platelet Volume 11.3 fL (9.4-12.3); Monocytes Absolute Auto 0.5 X10*3/uL (0.1-1.2); Monocytes Percent Auto 5.8 % (2-11); Neutrophils Absolute Auto 3.4 x10*3/uL (2.0-8.3); Neutrophils Percent Auto 44.2 % (45-73); Platelet Count 281 X10*3/uL (160-400); Red Blood Count 4.81 X10*6/uL (4.20-5.50); Red Cell Distribution Width 14.2 % (11.0-16.0); White Blood Count 7.7 X10*3/uL (4.8-10.8)
[2024-01-25 13:48] LABS: Bacteria Urine None Seen (None Seen); Hyaline Casts Urine 0-2 /LPF (0-2); RBC Urine 0-2 /HPF (0-2); WBC Urine 0-5 /HPF (0-5)
[2024-01-25 13:56] LABS: Alanine Aminotransferase 14 U/L (0-31); Albumin Level 4.1 g/dL (3.5-5.0); Alkaline Phosphatase 96 U/L (39-117); Anion Gap 10 (12-20); Aspartate Amino Transferase 15 U/L (5-31); Bilirubin Total 0.4 mg/dL (0.0-1.0); Blood Urea Nitrogen 15 mg/dL (9-16); Calcium 9.4 mg/dL (8.4-10.2); Carbon Dioxide 27 mmol/L (22-29); Chloride 109 mmol/L (96-108); Cholesterol 202 mg/dL (<200); Estimated Glomerular Filt Rate > 60; Glucose Fasting 100 mg/dL (60-99); HDL Cholesterol 40 mg/dL (>40); LDL Cholesterol Calculated 142 mg/dL (<100); Potassium 4.5 mmol/L (3.3-5.1); Sodium 141 mmol/L (135-145); Total Protein 7.4 g/dL (6.5-8.0); Triglycerides 104 mg/dL (<150)
[2024-01-25 14:16] LABS: TSH reflex Free T4 1.26 uIU/mL (0.32-4.0)
== END 2024-01-25 10:05 | disposition home or self-care (01) ==
LOC: HO.HMGCLDS 10:04
PROVIDERS: PCP Internal Medicine; Visit Provider Internal Medicine
DX: Z00.00 Encounter for general adult medical examination without abnormal findings (principal); I10 Essential (primary) hypertension; M48.061 Spinal stenosis, lumbar region without neurogenic claudication; E78.5 Hyperlipidemia, unspecified; F41.9 Anxiety disorder, unspecified; F32.A Depression, unspecified; Z79.899 Other long term (current) drug therapy; Z86.010 Personal history of colon polyps
CPT/HCPCS: 36415; 80053; 80061; 81001; 82306; 84443; 85025; 96127; 99397

== ENCOUNTER 2024-02-22 09:45 | Outpatient (REF) | payer OTHER, SELFPAY ==
--- NOTE | ~2024-02-22 | MM_ITS ---
EXAMINATION: MM SCREENING DIGITAL BREAST TOMOSYNTHESIS, BILATERAL CLINICAL INFORMATION: Screening. Asymptomatic. COMPARISON: Mammography: Comparison is made with available priors TECHNIQUE: Digital breast mammography with tomosynthesis is performed in both the craniocaudal and mediolateral oblique views along with computer-aided detection (CAD). FINDINGS: There are scattered areas of fibroglandular density (ACR BI-RADS breast composition Category b). There are no significant masses, abnormal calcifications, or other abnormalities. MM/MM tomosynthesis screening BI IMPRESSION: No mammographic evidence of malignancy. ASSESSMENT: BI-RADS BI-RADS 1 - Negative RECOMMENDATION: Routine annual mammography screening. 1 year F/U This examination should not preclude the clinical evaluation of a suspicious palpable abnormality. This patient's information was entered into a reminder system with a target due date for their next mammogram. Electronically signed by: Mili Medina DO 03/04/2024 02:46 PM EDT
== END 2024-02-22 09:46 | disposition home or self-care (01) ==
LOC: HO.MAMMO 09:45
PROVIDERS: PCP Internal Medicine; Visit Provider Internal Medicine
DX: Z12.31 Encounter for screening mammogram for malignant neoplasm of breast (principal)
CPT/HCPCS: 77063; 77067

== ENCOUNTER → 2024-02-22 10:15 | Outpatient (BNV) | payer OTHER, SELFPAY | PROVIDERS: PCP Internal Medicine; Visit Provider Internal Medicine | DX: Z12.31 Encounter for screening mammogram for malignant neoplasm of breast (principal) | CPT/HCPCS: 77063; 77067 ==

== ENCOUNTER 2024-08-27 13:36 | Outpatient (AMB) | payer MEDICARE, OTHER, SELFPAY ==
--- NOTE | 2024-08-27 13:48 | MHC.PC.OV ---
Vital Signs 08/27/24 13:49 Height 5 ft 5 in Weight 185 lb BMI 30.8 BP 118/80 Blood Pressure Location Lt brachial Position Sitting Respiration 20 Pulse 85 Pulse Source Pulse Oximeter Temp 98.2 F Temp Source Oral Pulse Oximetry (%) 96 Oxygen Delivery Method Room Air Intake Visit Reasons: F/U care-update insurance Intake Note: Pt is here today for a follow up visit. Pt states that she still has pain in her R hip and leg. Allergies No Known Allergies Allergy (Verified 08/27/24 13:51) Medication List - Last Reconciled 08/27/24 by Kasey Cervantes MD albuterol sulfate 90 mcg/actuation 2 puffs inhalation QID PRN enalapril maleate 10 mg PO DAILY polymyxin B sulf-trimethoprim 10,000 unit- 1 mg/mL 1 drp ophthalmic (eye) Q3H 7 days pravastatin 40 mg PO BEDTIME Tobacco use date assessed: 08/27/24 Fall risk assessment: 2 + Falls in past year Last assessed Fall Risk: 08/27/24 Dental Screening Dental Screen Date: 08/27/24 Did you have a dental visit in the last 12 months?: Yes Did you have a dental problem in the last 6 months where you did not have access to dental care?: No Was dental information given to patient?: Patient has dentist HPI F/U care-update insurance HPI Details Patient presents for the follow-up of hypertension hyperlipidemia stable on current medications. She complains of worsening lower back pain radiating to right lower extremity for a few weeks. Patient is not interested in pain management and cortisone injections. She denies any weakness or numbness in extremities change in bowel or bladder function. She complains of insomnia and feeling anxious and depressed most days of the week. Patient denies any change in appetite or suicidal ideation. [facility] Medical History History of cyst of breast Hypertension Surgical History Hx of colonoscopy Family History Mother DM type 2 (diabetes mellitus, type 2) Son Thyroid ca Social History Household Members Other:: , 3 sons, retired Housing: House Alcohol intake: never Patient Tobacco Use Status: Current everyday Tobacco user Tobacco use type: Cigarette Cigarettes Per Day: 6 e-Cigarette/Vaping Use: Never Used service: No Current occupational status: retired Cognitive needs: No Hearing needs: Yes Vision needs: Yes Questionnaire PHQ-9 Over the last 2 weeks, how often have you been bothered by any of the following problems? 1. Little interest or pleasure in doing things: nearly every day 2. Feeling down, depressed, or hopeless: several days 3. Trouble falling or staying asleep, or sleeping too much: nearly every day 4. Feeling tired or having little energy: nearly every day 5. Poor appetite or overeating: nearly every day 6. Feeling bad about yourself - or that you are a failure or have let yourself or your family down: several days 7. Trouble concentrating on things, such as reading the newspaper or watching television: nearly every day 8. Moving or speaking so slowly that other people could have noticed. Or the opposite - being so fidgety or restless that you have been moving around a lot more than usual: several days 9. Thoughts that you would be better off or of hurting yourself in some way: not at all Total score: 18 Depression Screening Interpretation: Positive (Duloxetine 20 mg daily is prescribed. Patient was advised to schedule follow-up with her counselor) Depression Screening Follow-up: Existing condition and New Medication prescribed Depression Screening Done: Yes 35720 - PHQ-9 Billing: Yes Source: Developed by Drs. Mauro Henriquez, Manuela Alonso, Zi Jones and colleagues, with an educational niki from [employer]. Thrive Questionnaire Date Thrive assessed: 08/27/24 I am a: Patient What is your living situation today?: I have a steady place to live Within the past 12 months, did the food you bought not last and you didn't have the money to get more?: Often true Within the past 12 months, did you worry whether your food would run out before you got money to buy more?: Sometimes True Do you have trouble paying for medicines?: No Do you have trouble getting transportation to medical appointments?: No Do you have trouble paying your heating and electricity bill?: I choose not to answer this question Do you have trouble taking care of your child, family member or friend?: No Do you have trouble with day-to-day activities such as bathing, preparing meals, shopping, managing finances, etc.?: I choose not to answer this question Are you currently unemployed and looking for a job?: Yes Are you interested in more education?: No Please select the resources that you would like help with: Care for elder or disabled Currently or been in a relationship where the following occur: No concerns reported THRIVE Score: 2 AUDIT C Alcohol Use Questionnaire (AUDIT-C) 1. How often do you have a drink containing alcohol?: Never 3. How often do you have six or more drinks on one occasion?: Never Total Score: 0 JACOBO-7 AMB Questionnaire JACOBO-7 Date JACOBO - 7 assessed: 08/27/24 Feeling nervous, anxious, or on edge: 1 = Several days Not being able to stop or control worryin = Several days Worrying too much about different things: 1 = Several days Trouble relaxin = Several days Being so restless that it is hard to sit still: 2 = More than half the days Becoming easily annoyed or irritable: 1 = Several days Feeling afraid as if something awful might happen: 0 = Not at all Total JACOBO-7 score (0-4 normal; 5-9 mild; 10-14 moderate; 15-21 severe): 7 Source: Developed by Drs. Mauro Henriquez, Manuela Alonso, Zi Jones and colleagues, with an educational niki from [employer]. JACOBO-7 Assessment Billing JACOBO-7 Assessment Tool: JACOBO-7 Assessment 85684 Review of Systems Const All systems reviewed & are unremarkable except as noted in HPI and below Eyes Reports no additional complaints ENT Reports no additional complaints Card Reports no additional complaints Resp Reports no additional complaints GI Reports no additional complaints Physical exam (Primary Care) Vital Signs: Last Vital Signs Temp 98.2 F 08/27/24 13:49 Pulse 85 08/27/24 13:49 Resp 20 08/27/24 13:49 BP 118/80 08/27/24 13:49 Pulse Ox 96 08/27/24 13:49 Oxygen Delivery Method Room Air 08/27/24 13:49 BMI result Body Mass Index 30.8 Tobacco/Smoking Status: Tobacco use Status Tobacco use date assessed 08/27/24 08/27/24 13:54 Patient Tobacco Use Status Current everyday Tobacco 08/27/24 13:54 Tobacco use type Cigarette 08/27/24 13:54 e-Cigarette/Vaping Use Never Used 08/27/24 13:54 PHQ-9: PHQ-9 Score PHQ-9: Total score 18 08/27/24 13:54 Depression Screening Interpretation: Positive (Duloxetine 20 mg daily is prescribed. Patient was advised to schedule follow-up with her counselor) Depression Screening Follow-up: Existing condition and New Medication prescribed Thrive Assessment: Date of Thrive Assessment Date Thrive assessed 08/27/24 08/27/24 13:54 Currently or been in a relationship where the following occur: No concerns reported Const General: no acute distress HENMT Head: Yes normal to inspection Ears: hearing grossly normal bilaterally Mouth: Normal oral and palatal mucosa present Neck Neck: Yes supple Resp Effort & Inspection: normal respiratory effort Auscultation: clear to auscultation bilaterally Cardio Rhythm: regular rhythm Heart sounds: S1 normal heart sound present and S2 normal heart sound present Back/Spine/Pelvis Other: Decreased range of motion in lumbar spine straight leg rising 90 degrees bilaterally deep tendon reflexes 2+ bilaterally motor strength 5/5 bilaterally Coding Level of Care Code Est Pt Level 4 (09088) Diagnoses HTN (hypertension) I10 Hyperlipidemia E78.5 Anxiety and depression F41.9; F32.A 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 Additional Codes JACOBO-7 Assessment Billing - JACOBO-7 Assessment Tool: JACOBO-7 Assessment 61862 ([id number]) PHQ-9 - 35711 - PHQ-9 Billing: Yes ([id number]) Assessment & Plan Assessment & Plan (1) HTN (hypertension): Code(s): I10 - Essential (primary) hypertension Category: Medical Plan: Continue enalapril (2) Hyperlipidemia: Code(s): E78.5 - Hyperlipidemia, unspecified Category: Medical Plan: Continue statin (3) Anxiety and depression: Code(s): F41.9 - Anxiety disorder, unspecified; F32.A - Depression, unspecified Category: Medical Plan: Start duloxetine 20 mg daily patient will schedule follow-up visit with her counselor (4) Lumbar and sacral spondyloarthritis: Comment: Follow-up with pain management, patient declined stimulator and cortisone injections Code(s): M47.817 - Spondylosis without myelopathy or radiculopathy, lumbosacral region Category: Medical Plan: Continue home stretching exercises and supportive care Orders: Orders Lipid Panel Today E78.5 - Hyperlipidemia, unspecified, I10 - Essential (primary) hypertension Comprehensive Home. Panel Fast Today E78.5 - Hyperlipidemia, unspecified, I10 - Essential (primary) hypertension TSH reflex Free T4 Today E78.5 - Hyperlipidemia, unspecified, I10 - Essential (primary) hypertension Medications: New duloxetine 20 mg PO BID 90 caps 1RF duloxetine 20 mg PO DAILY 90 caps 3RF
[2024-08-27 13:49] VITALS: BP 118/80; PULSE 85; RESP 20; TEMP 36.8; O2SAT 96; BMI 30.8
== END 2024-08-27 14:32 | disposition home or self-care (01) ==
PROVIDERS: PCP Internal Medicine; Visit Provider Internal Medicine
DX: I10 Essential (primary) hypertension (principal); E78.5 Hyperlipidemia, unspecified; F41.9 Anxiety disorder, unspecified; F32.A Depression, unspecified; M47.817 Spondylosis without myelopathy or radiculopathy, lumbosacral region; Z23 Encounter for immunization

== ENCOUNTER → 2024-08-27 13:36 | Outpatient (BNVA) | payer OTHER, SELFPAY | PROVIDERS: PCP Internal Medicine; Visit Provider Internal Medicine | DX: I10 Essential (primary) hypertension (principal); E78.5 Hyperlipidemia, unspecified; F41.9 Anxiety disorder, unspecified; F32.A Depression, unspecified; M47.817 Spondylosis without myelopathy or radiculopathy, lumbosacral region; Z23 Encounter for immunization; Z79.899 Other long term (current) drug therapy | CPT/HCPCS: 90471; 90677; 96127; 99212 ==

== ENCOUNTER 2025-01-26 08:45 | Outpatient (REF) | payer MEDICARE, OTHER, SELFPAY ==
[2025-01-26 10:26] LABS: MANUAL DIFF FLAG NO
[2025-01-26 10:34] LABS: Hematocrit 43.2 % (37.0-47.0); Hemoglobin 14.2 g/dl (12.0-16.0); Imm Gran Abs Auto 0.03 X10*3/uL (0.00-0.03); Imm Gran Pct Auto 0.3 % (0.0-0.4); Lymphocytes Absolute Auto 3.4 X10*3/uL (1.2-4.9); Mean Corpuscular HGB Conc 32.9 g/dl (31.0-35.0); Mean Corpuscular Hemoglobin 29.2 pg (27.0-33.0); Mean Corpuscular Volume 88.9 fL (80.0-98.0); NRBC Abs Auto 0.000 X10*3/uL (0.0-0.012); NRBC Pct Auto 0.0 /100WBC (0.0-0.2); Platelet Count 256 X10*3/uL (160-400); Red Blood Count 4.86 X10*6/uL (4.20-5.50); White Blood Count 8.8 X10*3/uL (4.8-10.8)
[2025-01-26 11:21] LABS: Alanine Aminotransferase 14 U/L (0-31); Albumin Level 4.2 g/dL (3.5-5.0); Alkaline Phosphatase 100 U/L (39-117); Anion Gap 9 (12-20); Aspartate Amino Transferase 24 U/L (5-31); Blood Urea Nitrogen 17 mg/dL (9-16); Calcium 9.1 mg/dL (8.4-10.2); Carbon Dioxide 29 mmol/L (22-29); Chloride 111 mmol/L (96-108); Cholesterol 165 mg/dL (<200); Estimated Glomerular Filt Rate > 60; HDL Cholesterol 38 mg/dL (>40); Potassium 4.5 mmol/L (3.3-5.1); Sodium 144 mmol/L (135-145); Total Protein 7.1 g/dL (6.5-8.0); Triglycerides 113 mg/dL (<150)
== END 2025-01-26 08:46 | disposition home or self-care (01) ==
LOC: HO.HMGCLDS 08:45
PROVIDERS: PCP Internal Medicine; Visit Provider Internal Medicine
DX: Z00.00 Encounter for general adult medical examination without abnormal findings (principal); I10 Essential (primary) hypertension; E78.5 Hyperlipidemia, unspecified; E66.9 Obesity, unspecified; F41.9 Anxiety disorder, unspecified; F32.A Depression, unspecified; M47.817 Spondylosis without myelopathy or radiculopathy, lumbosacral region; Z79.899 Other long term (current) drug therapy
CPT/HCPCS: 36415; 80053; 80061; 84443; 85025; 99397

== ENCOUNTER 2025-01-26 09:05 | Outpatient (AMB) | payer MEDICARE, OTHER, SELFPAY ==
[2025-01-26 09:06] VITALS: BP 118/82; PULSE 66; RESP 18; TEMP 36.6; O2SAT 98; BMI 31.9
--- NOTE | 2025-01-26 09:06 | A.OFFPC_ITS ---
Vital Signs 01/26/25 09:06 Height 5 ft 5 in Weight 192 lb BMI 31.9 BP 118/82 Blood Pressure Location Rt brachial Position Sitting Respiration 18 Pulse 66 Pulse Source Pulse Oximeter Temp 97.9 F Temp Source Oral Pulse Oximetry (%) 98 Oxygen Delivery Method Room Air Intake Visit Reasons: Annual visit Intake Note: Pt is here today for PE. Pt states that she still has lower R back pain. Allergies duloxetine Adverse Reaction (Intermediate, Verified 01/26/25 09:39) Tinnitus Medication List - Last Reconciled 01/26/25 by Kasey Cervantes MD albuterol sulfate 90 mcg/actuation 2 puffs inhalation QID PRN enalapril maleate 10 mg PO DAILY polymyxin B sulf-trimethoprim 10,000 unit- 1 mg/mL 1 drp ophthalmic (eye) Q3H 7 days pravastatin 40 mg PO BEDTIME Tobacco use date assessed: 01/26/25 Fall risk assessment: 2 + Falls in past year Last assessed Fall Risk: 01/26/25 Dental Screening Dental Screen Date: 08/27/24 HPI Annual visit HPI Details Pt [facility] for [facility] Medical History (Updated 01/26/25 @ 09:42 by Kasey Cervantes MD) Anxiety and depression Hyperlipidemia Tubular adenoma of colon History of cyst of breast Hypertension Surgical History Hx of colonoscopy Family History Mother DM type 2 (diabetes mellitus, type 2) Son Thyroid ca Social History Household Members Other:: , 3 sons, retired Housing: House Alcohol intake: never Patient Tobacco Use Status: Current everyday Tobacco user Tobacco use type: Cigarette Cigarettes Per Day: 6 e-Cigarette/Vaping Use: Never Used service: No Current occupational status: retired Cognitive needs: No Hearing needs: Yes Vision needs: Yes Questionnaire PHQ-9 Over the last 2 weeks, how often have you been bothered by any of the following problems? 1. Little interest or pleasure in doing things: nearly every day 2. Feeling down, depressed, or hopeless: several days 3. Trouble falling or staying asleep, or sleeping too much: nearly every day 4. Feeling tired or having little energy: nearly every day 5. Poor appetite or overeating: nearly every day 6. Feeling bad about yourself - or that you are a failure or have let yourself or your family down: several days 7. Trouble concentrating on things, such as reading the newspaper or watching television: nearly every day 8. Moving or speaking so slowly that other people could have noticed. Or the opposite - being so fidgety or restless that you have been moving around a lot more than usual: several days 9. Thoughts that you would be better off or of hurting yourself in some way: not at all Total score: 18 Depression Screening Interpretation: Positive ( Patient was advised to schedule follow-up with her counselor, patient declined treatment) Depression Screening Follow-up: Existing condition and Declines treatment Depression Screening Done: Yes Source: Developed by Drs. Mauro Henriquez, Manuela Alonso, Zi Jones and colleagues, with an educational niki from [employer]. Thrive Questionnaire Date Thrive assessed: 08/27/24 I am a: Patient What is your living situation today?: I have a steady place to live Within the past 12 months, did the food you bought not last and you didn't have the money to get more?: Often true Within the past 12 months, did you worry whether your food would run out before you got money to buy more?: Sometimes True Do you have trouble paying for medicines?: No Do you have trouble getting transportation to medical appointments?: No Do you have trouble paying your heating and electricity bill?: I choose not to answer this question Do you have trouble taking care of your child, family member or friend?: No Do you have trouble with day-to-day activities such as bathing, preparing meals, shopping, managing finances, etc.?: I choose not to answer this question Are you currently unemployed and looking for a job?: Yes Are you interested in more education?: No Please select the resources that you would like help with: Care for elder or disabled Currently or been in a relationship where the following occur: No concerns reported THRIVE Score: 2 AUDIT C Alcohol Use Questionnaire (AUDIT-C) 2. How many drinks containing alcohol do you have on a typical day when you are drinking?: 1 or 2 3. How often do you have six or more drinks on one occasion?: Never Total Score: 0 JACOBO-7 AMB Questionnaire JACOBO-7 Date JACOBO - 7 assessed: 08/27/24 Feeling nervous, anxious, or on edge: 1 = Several days Not being able to stop or control worryin = Several days Worrying too much about different things: 1 = Several days Trouble relaxin = Several days Being so restless that it is hard to sit still: 2 = More than half the days Becoming easily annoyed or irritable: 1 = Several days Feeling afraid as if something awful might happen: 0 = Not at all Total JACOBO-7 score (0-4 normal; 5-9 mild; 10-14 moderate; 15-21 severe): 7 Source: Developed by Drs. Mauro Henriquez, Manuela Alonso, Zi Jones and colleagues, with an educational niki from [employer]. Review of Systems Const All systems reviewed & are unremarkable except as noted in HPI and below Eyes Reports no additional complaints ENT Reports no additional complaints Card Reports no additional complaints Resp Reports no additional complaints GI Reports no additional complaints Reports no additional complaints Physical exam (Primary Care) Vital Signs: Last Vital Signs Temp 97.9 F 01/26/25 09:06 Pulse 66 01/26/25 09:06 Resp 18 01/26/25 09:06 BP 118/82 01/26/25 09:06 Pulse Ox 98 01/26/25 09:06 Oxygen Delivery Method Room Air 01/26/25 09:06 BMI result Body Mass Index 31.9 Tobacco/Smoking Status: Tobacco use Status Tobacco use date assessed 01/26/25 01/26/25 09:16 Patient Tobacco Use Status Current everyday Tobacco 01/26/25 09:16 Tobacco use type Cigarette 01/26/25 09:16 e-Cigarette/Vaping Use Never Used 01/26/25 09:16 PHQ-9: PHQ-9 Score PHQ-9: Total score 18 01/26/25 09:16 Depression Screening Interpretation: Positive ( Patient was advised to schedule follow-up with her counselor, patient declined treatment) Depression Screening Follow-up: Existing condition and Declines treatment Thrive Assessment: Date of Thrive Assessment Date Thrive assessed 04/23/25 09/22/25 09:16 Currently or been in a relationship where the following occur: No concerns reported Const General: no acute distress HENMT Head: Yes normal to inspection Ears: hearing grossly normal bilaterally Face and sinus: Yes normal facial exam Mouth: Normal oral and palatal mucosa present Throat: Yes posterior oropharynx normal Eyes General: appearance normal, both eyes and all related structures Neck Neck: Yes no lymphadenopathy and Yes supple Resp Effort & Inspection: normal respiratory effort Auscultation: clear to auscultation bilaterally Cardio Rhythm: regular rhythm Heart sounds: S1 normal heart sound present and S2 normal heart sound present GI Inspection: Yes normal to inspection Palpation (GI): Soft to palpation Percussion: Yes normal to percussion Auscultation: normal bowel sounds Coding Level of Care Code Est Pt Prev Care >65y(55317) Diagnoses Anxiety and depression F41.9; F32.A HTN (hypertension) I10 Hyperlipidemia E78.5 Annual physical exam Z00.00 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 Assessment & Plan Assessment & Plan (1) Anxiety and depression: Comment: Patient declined treatment and counselling 01/2025 Code(s): F41.9 - Anxiety disorder, unspecified; F32.A - Depression, unspecified Category: Medical Plan: Patient declined treatment (2) HTN (hypertension): Code(s): I10 - Essential (primary) hypertension Category: Medical Plan: Continue enalapril (3) Hyperlipidemia: Code(s): E78.5 - Hyperlipidemia, unspecified Category: Medical Plan: Continue statin (4) Annual physical exam: Code(s): Z00.00 - Encounter for general adult medical examination without abnormal findings Category: Medical Plan: Well-balanced diet regular physical activity discussed with the patient. She is up-to-date with the mammogram and is due for repeat colonoscopy next October (5) Lumbar and sacral spondyloarthritis: Comment: Follow-up with pain management, patient declined stimulator and cortisone injections Code(s): M47.817 - Spondylosis without myelopathy or radiculopathy, lumbosacral region Category: Medical Plan: Established with pain management Medications: Refilled enalapril maleate 10 mg PO DAILY 90 tabs 3RF albuterol sulfate 90 mcg/actuation 2 puffs inhalation QID PRN 8.5 grams 0RF shortness of breath or wheezing pravastatin 40 mg PO BEDTIME 90 tabs 3RF Discontinued polymyxin B sulf-trimethoprim 10,000 unit- 1 mg/mL to both eyes while awake; do not exceed 6 doses in 24 hours Discontinued Reason: Doctor's Order 1 drp ophthalmic (eye) Q3H 7 days 10 mL 0RF
== END 2025-01-26 09:36 | disposition home or self-care (01) ==
LOC: HO.HMCC 09:05
PROVIDERS: PCP Internal Medicine; Visit Provider Internal Medicine
DX: Z00.00 Encounter for general adult medical examination without abnormal findings (principal); F41.9 Anxiety disorder, unspecified; F32.A Depression, unspecified; I10 Essential (primary) hypertension; E78.5 Hyperlipidemia, unspecified; M47.817 Spondylosis without myelopathy or radiculopathy, lumbosacral region

== ENCOUNTER 2025-02-27 10:32 | Outpatient (REF) | payer MEDICARE, OTHER, SELFPAY ==
--- NOTE | ~2025-02-27 | MM_ITS ---
EXAMINATION: MM SCREENING DIGITAL BREAST TOMOSYNTHESIS, BILATERAL CLINICAL INFORMATION: Screening. Asymptomatic. COMPARISON: Mammography: Comparison is made with available priors TECHNIQUE: Digital breast mammography with tomosynthesis is performed in both the craniocaudal and mediolateral oblique views along with computer-aided detection (CAD). FINDINGS: There are scattered areas of fibroglandular density. Left: Left marker clip. There are no significant masses, abnormal calcifications, or other abnormalities. Right: Asymmetry lateral breast posterior depth on CC view. No suspicious calcifications or other abnormal findings. MM/MM tomosynthesis screening BI IMPRESSION: Additional imaging is recommended ASSESSMENT: BI-RADS Category 0: Incomplete - Need additional Imaging Evaluation RECOMMENDATION: 1. Additional views of the Right breast. 2. Targeted ultrasound if warranted after review of the additional views. 3. Radiology department staff will contact the patient for additional imaging. Additional Imaging required Electronically signed by: Mili Medina DO 03/02/2025 04:56 PM EDT
== END 2025-02-27 10:33 | disposition home or self-care (01) ==
LOC: HO.MAMMO 10:32
PROVIDERS: PCP Internal Medicine; Visit Provider Internal Medicine
DX: Z12.31 Encounter for screening mammogram for malignant neoplasm of breast (principal)
CPT/HCPCS: 77063; 77067

== ENCOUNTER → 2025-02-27 10:45 | Outpatient (BNV) | payer MEDICARE, OTHER, SELFPAY | PROVIDERS: PCP Internal Medicine; Visit Provider Internal Medicine | DX: Z12.31 Encounter for screening mammogram for malignant neoplasm of breast (principal) | CPT/HCPCS: 77063; 77067 ==

== ENCOUNTER 2025-04-23 12:53 | Outpatient (REF) | payer MEDICARE, OTHER, SELFPAY ==
--- NOTE | ~2025-04-23 | US_ITS ---
EXAMINATION: MM DIAGNOSTIC DIGITAL BREAST TOMOSYNTHESIS, RIGHT Limited Right breast ultrasound. CLINICAL INFORMATION: Call back from screening for asymmetry in the lateral right breast in CC view posterior depth. COMPARISON: Mammography: Prior's on PACS. TECHNIQUE: Digital breast tomosynthesis is performed in both the craniocaudal and mediolateral oblique views along with computer-aided detection (CAD). Synthesized 2D images are generated from the tomosynthesis. FINDINGS: There are scattered areas of fibroglandular density. Asymmetry lateral right breast posterior depth on CC view partially effaces on additional imaging projections No suspicious calcifications or other abnormal findings. Targeted color Doppler ultrasound scanning from 7- 11:00 outer right breast demonstrates normal fibroglandular breast tissue. There is no sonographic abnormal finding. US/US Breast RT Limited Mamm Only IMPRESSION: Asymmetry lateral right breast posterior depth which partially effaces and without sonographic correlate. Recommend 6 month follow-up mammogram for further evaluation of stability. ASSESSMENT: BI-RADS Category 3: Probably benign RECOMMENDATION: 6 Month F/U Results were provided to the patient at time of visit by the technologist. This patient's information was entered into a reminder system with a target due date for their next mammogram. Electronically signed by: Mili Medina DO 04/23/2025 01:49 PM JED
== END 2025-04-23 12:54 | disposition home or self-care (01) ==
LOC: HO.MAMMO 12:53
PROVIDERS: PCP Internal Medicine; Visit Provider Internal Medicine
DX: N64.89 Other specified disorders of breast (principal)
CPT/HCPCS: 76642; 77061; 77065

== ENCOUNTER → 2025-04-23 13:00 | Outpatient (BNV) | payer MEDICARE, OTHER, SELFPAY | PROVIDERS: PCP Internal Medicine; Visit Provider Internal Medicine | DX: R92.8 Other abnormal and inconclusive findings on diagnostic imaging of breast (principal) | CPT/HCPCS: 76642; 77065; G0279 ==